=== PATIENT | female | born 1990 | race Caucasian/White ===

== ENCOUNTER 2018-10-13 02:50 | Inpatient (IN) ==
--- NOTE | 2018-10-13 03:34 | ED ---
History of Present Illness Primary Care Physician: No Primary Care Physician Chief Complaint: My water broke History of Present Illness: 27-year-old female presented to the emergency department complaining of grossly rupture of membranes. Patient states about 2 AM this morning she had a lot of leakage of fluid, the fluid is clear, patient continues to have some trickle down fluids. She feels the baby move,'s having some contractions, denies any vaginal bleeding. This is for her first baby she has had an uneventful . Normal Pap smears, denies any STDs in the past. PMH: None PSx: [place] teeth Medications: vitamins with iron Family history: Denies any family history of problems with anesthesia, denies bleeding disorders Allergies: None Para: 0 : 1 - Inpatient Certification I certify that the inpatient services were ordered in accordance with Medicare regulations governing the order. This includes certification that hospital inpatient services are reasonable and necessary and in the case of services not specified as inpatient-only under 42 CFR 419.22(n), that they are appropriately provided as inpatient services in accordance to with the 2-midnight benchmark under 43 CFR 412.3(e) PMFSH - Medical / Surgical Hx Neg / Unobtainable Medical Problems Denied: Yes - Medical History Medical History: Medical History (Last Updated 10/13/18 @ 03:53 by Odalys Young MD, R1) H/O wisdom tooth extraction - Social History I have reviewed the patient's Social History: Yes - Tobacco History Second Hand Smoke Exposure: No Tobacco Use In Past 30 Days: No - Alcohol History How Often Do You Have a Drink Containing Alcohol: Never - Substance Use History Substance History: No History of Abuse - Travel History History of Recent Travel: No Medications and Allergies Allergies Allergy/AdvReac Type Severity Reaction Status Date / Time No Known Allergies Allergy Verified 10/13/18 03:12 Home Medications Medication Instructions Recorded Confirmed Type Iron (ferrous sulfate) 1 mg PO DAILY 10/13/18 10/13/18 History PNV cmb#95-ferrous fumarate-FA 1 tab PO DAILY 10/13/18 10/13/18 History [] Exam Vital signs: Vital Signs 10/13/18 03:16 10/13/18 03:18 10/13/18 03:22 Temperature 99.0 F Pulse Rate 92 H Respiratory Rate 18 Blood Pressure 125/65 Intake & Output 10/12/18 10/12/18 10/13/18 06:59 18:59 06:59 Weight 68.492 kg Narrative: GENERAL: Well-nourished, well-developed patient. SKIN: Warm and dry. HEAD: Normocephalic and atraumatic. EYES: No scleral icterus. No injection or drainage. ENT: No nasal drainage noted. Mucous membranes pink. Airway patent. NECK: Supple, trachea midline. No JVD. CARDIOVASCULAR: Regular rate and rhythm without murmurs, gallops, or rubs. RESPIRATORY: Breath sounds equal bilaterally. No accessory muscle use. BREASTS: Bilateral exam showed no masses , no retractions, no nipple discharge. ABDOMEN/GI: Abdomen soft, non-tender, bowel sounds present, no rebound, no guarding GENITOURINARY: External Genitalia: intact and normal in appearance Cervix: Posterior to patient's left side Dilatation: 2 cm Effacement: 60% Station: -1 Presentation: Vertex Membranes: Ruptured Uterine Contractions: Present FHT's: Category: 1 Baseline: 130 Reactive: Yes Variability: Moderate EXTREMITIES: No cyanosis or edema. NEUROLOGICAL: Awake and alert. Motor and sensory grossly within normal limits. Five out of 5 muscle strength in all muscle groups. Normal speech. Assessment and Plan - Diagnosis (1) 38 weeks gestation of Code(s): Z3A.38 - 38 weeks gestation of Status: Acute (2) Rupture of membranes with clear amniotic fluid Status: Acute - Plan 27-year-old at 38/1 [facility] admitted for rupture of membranes. Uncomplicated . GBS negative. 2cm/60%/-1 Plan: Admit to labor and delivery Expectant labor management Anticipate vaginal delivery Patient seen and discussed with Dr. Ybarra Discharge Plan - Discharge Condition Condition: Good - Physicians Team Primary Care Provider: Primary Care Liu,Isabel Attending Provider: Alisia Ybarra
[2018-10-13] MEDS ORDERED: Sod Chloride 0.9% Inj 1,000 ML IV.CONT PRN (04:01)
[2018-10-13] MEDS ORDERED: fentaNYL Citrate Inj 100 MCG/2 ML Ampul IV.PUSH PRN ×2 (04:01)
[2018-10-13] MEDS ORDERED: Oxytocin 30 Units/500ml Premix 30 UNITS/500 ML BAG IV.SIG ONE (04:01)
[2018-10-13] MEDS ORDERED: Sodium Chlor 0.9% Inj 500 ML IV.SIG PRN (04:01)
[2018-10-13] MEDS ORDERED: Naloxone Inj 0.4 MG/ML Vial IV.PUSH PRN (04:01)
[2018-10-13] MEDS ORDERED: Sodium Chloride 0.9% 2 ML Flush PRN IV.FLUSH (04:07)
[2018-10-13] MEDS ORDERED: Citric Acid/Sodium Citrate Liq 30 ML UDC PO SCH (04:15)
[2018-10-13 04:43] LABS: Baso % (Auto) 0.2 % (0.0-2.0); Eos # (Auto) 0.1 th/mm3 (0.0-0.4); Eos % (Auto) 0.8 % (0.0-4.0); Hematocrit 35.4 % (35.0-46.0); Hemoglobin 12.3 gm/dL (11.6-15.3); Lymph # (Auto) 1.4 th/mm3 (1.0-4.8); Lymph % (Auto) 12.4 % (9.0-44.0); Mean Corpuscular HGB Conc 34.7 % (32.0-36.0); Mean Corpuscular Hemoglobin 30.4 pg (27.0-34.0); Mean Corpuscular Volume 87.7 fL (80.0-100.0); Mean Platelet Volume 9.5 fL (7.0-11.0); Mono # (Auto) 0.9 th/mm3 (0.0-0.9); Mono % (Auto) 7.8 % (0.0-8.0); Neut % (Auto) 78.8 % (16.0-70.0); Platelet Count 168 th/mm3 (150-450); Red Blood Count 4.03 mil/mm3 (4.00-5.30); Red Cell Distribution Width 13.6 % (11.6-17.2); White Blood Count 11.4 th/mm3 (4.0-11.0)
[2018-10-13 04:55] LABS: Bilirubin,Urine Negative (Negative); Clarity,Urine Clear (Clear); Color,Urine Yellow (Yellw/Straw); Glucose,Urine (UA) Negative (Negative); Leukocyte Esterase,Urine Negative (Negative); Mucus,Urine Few /lpf (Occasional); Nitrite,Urine Negative (Negative); Specific Gravity,Urine 1.005 (1.002-1.035); Squamous Epithelial Cell,Urine <1 /hpf (0-5)
[2018-10-13] MEDS ORDERED: Sodium Chloride 0.9% 2 ML Flush BID IV.FLUSH SCH (09:00)
[2018-10-13] MEDS ORDERED: fentaNYL 2MCG-Bupiv 0.125% Epi 150 ML EPIDURAL ONE (09:35)
[2018-10-13] MEDS ORDERED: Sodium Chlor 0.9% Inj 10 ML ONE (10:14)
[2018-10-13] MEDS ORDERED: Lidocaine PF 1% Inj 5 ML Vial ONE (10:14)
[2018-10-13] MEDS ORDERED: Lidocaaine 1.5%/Epinephrine 1:200,000 PF Inj 5 ML Amp ONE (10:15)
[2018-10-13] MEDS ORDERED: fentaNYL 2MCG-Bupiv 0.125% Epi 150 ML EPIDURAL PRN (10:59)
[2018-10-13] MEDS ORDERED: fentaNYL Citrate Inj 100 MCG/2 ML Ampul EPIDURAL ONE (10:59)
[2018-10-13] MEDS ORDERED: Oxytocin 30 Units/500ml Premix 30 UNITS/500 ML BAG ONE (16:49)
[2018-10-13] MEDS ORDERED: Zolpidem Tartrate 5 MG Tablet PO PRN (21:00)
[2018-10-13] MEDS ORDERED: Benzocaine 20% Top Spray 60 ML Can TOPICAL PRN (21:32)
[2018-10-13] MEDS ORDERED: Witch Hazel 50%/Glyderin 12.5% 40 Pad Jar RECTAL PRN (21:32)
[2018-10-13] MEDS ORDERED: Oxytocin 30 Units/500ml Premix 30 UNITS/500 ML BAG IV.CONT PRN (21:32)
[2018-10-13] MEDS ORDERED: Acetaminophen 325 MG Tablet PO PRN (21:32)
[2018-10-13] MEDS ORDERED: Bisacodyl 10 MG Supp RECTAL PRN (21:32)
--- NOTE | 2018-10-13 21:36 | P.OBDELI ---
Weeks Gestation: 38 Patient Started Active Labor: Yes Medical Induction of Labor: No Artificial Rupture of Membrane: No Anesthesia: Epidural Episiotomy: none Vaginal Delivery: Spontaneous Presentation: Vertex Nuchal Cord: None Delayed Cord Clamping (45 sec): Yes Placenta: Spontaneous delivery Laceration: 1 deg Repair: Vicryl running (3-0) Estimated blood loss (mL): 350 : Female Infant Female A Infant Delivery Date: 10/13/18 score (1 min): 8 score (5 min): 8
[2018-10-13] MEDS ORDERED: Diphtheria/Tetanus/Pertussis Vaccine Inj 0.5 ML Syringe IM ONE (22:00)
[2018-10-13] MEDS ORDERED: Measles/Mumps/Rubella Vaccine Inj 0.5 ML Vial SQ ONE (22:00)
--- NOTE | 2018-10-14 08:17 | P.PNOB ---
Subjective Post day: 1 Interval history: Patient is a 28F delivered at 38 weeks. Patient is day 1 after . Patient's pain is well controlled, currently rates it at 2/10. Bleeding is normal. Denies flatus or BM at this time. Denies headache, chest pain, nausea, vomiting, abdominal pain, calf pain. Patient has not been out of bed since this AM. Objective Vital Signs/I&O: Vital Signs 10/13/18 08:30 10/13/18 08:55 10/13/18 09:00 Temperature 97.9 F 97.5 F L Pulse Rate 92 H 97 H Respiratory Rate Blood Pressure 10/13/18 09:05 10/13/18 09:10 10/13/18 09:25 Temperature Pulse Rate 86 82 86 Respiratory Rate Blood Pressure 112/54 L 10/13/18 09:51 10/13/18 10:11 10/13/18 10:13 Temperature 98.6 F Pulse Rate 84 79 Respiratory Rate 18 Blood Pressure 117/63 100/48 L 10/13/18 10:15 10/13/18 10:18 10/13/18 10:55 Temperature Pulse Rate 84 86 88 Respiratory Rate Blood Pressure 103/54 L 98/53 L 99/50 L 10/13/18 11:10 10/13/18 11:15 10/13/18 11:25 Temperature Pulse Rate 91 H 89 95 H Respiratory Rate Blood Pressure 108/63 102/47 L 10/13/18 11:30 10/13/18 12:30 10/13/18 13:01 Temperature Pulse Rate 92 H 95 H 76 Respiratory Rate 18 Blood Pressure 98/58 L 100/48 L 102/57 L 10/13/18 13:18 10/13/18 14:10 10/13/18 15:10 Temperature 98.5 F Pulse Rate 78 90 Respiratory Rate Blood Pressure 110/58 L 114/69 10/13/18 15:45 10/13/18 16:00 10/13/18 16:40 Temperature 97.9 F Pulse Rate 83 90 Respiratory Rate 17 Blood Pressure 116/63 122/63 10/13/18 17:31 10/13/18 19:15 10/13/18 19:31 Temperature 98.7 F Pulse Rate 87 83 Respiratory Rate 18 Blood Pressure 118/49 L 119/62 10/13/18 20:01 10/13/18 20:31 10/13/18 21:00 Temperature Pulse Rate 86 90 130 H Respiratory Rate 18 Blood Pressure 120/63 112/56 L 127/96 H 10/13/18 21:32 10/13/18 21:45 10/13/18 22:00 Temperature 98.9 F Pulse Rate 87 105 H Respiratory Rate 20 18 Blood Pressure 116/58 L 113/66 10/13/18 22:12 10/13/18 22:16 10/13/18 22:30 Temperature Pulse Rate 94 H 108 H Respiratory Rate 18 Blood Pressure 115/60 111/58 L 10/13/18 23:47 Temperature 98.9 F Pulse Rate 83 Respiratory Rate 18 Blood Pressure 119/68 Intake & Output 10/13/18 10/14/18 10/14/18 18:59 06:59 18:59 Intake Total 3000 / 3000 Balance 3000 / 3000 Intake: IV 3000 / 3000 LR 1000 mL Inj 1,000 ML @ 125 3000 / 3000 mls/hr IV.CONT .Q8H [facility] Rx#: [id number] Result Diagrams: 10/13/18 03:30 Objective Remarks: GENERAL: Well-nourished, well-developed patient cooperative young female who was NAD. CARDIOVASCULAR: Regular rate and rhythm without murmurs, gallops, or rubs. RESPIRATORY: Breath sounds equal bilaterally. No wheezing or crackles. No accessory muscle use. ABDOMEN/GI: Abdomen soft, appropriately tender to palpation Fundus: Firm, non-tender at umbilicus. GENITOURINARY: Light to moderate bleeding. EXTREMITIES: No cyanosis or edema, non-tender, without signs of DVT. Medications and IVs: Active Medications Acetaminophen (Tylenol) 650 mg PO Q4H PRN PRN Reason: PAIN SCALE 1 TO 2 Al Hydroxide/Mg Hydroxide (Milk Of Magnesia Liq) 30 ml PO Q12H PRN PRN Reason: Mild Constipation Benzocaine (Americaine 20% Top Grethel) 1 spray TOPICAL Q4H PRN PRN Reason: For Perineum Discomfort Last Admin: 10/14/18 00:03 Dose: 1 spray Bisacodyl (Dulcolax Supp) 10 mg RECTAL DAILY PRN PRN Reason: SEVERE CONSITIPATION Ephedrine Sulfate (Ephedrine/Ns Syringe) 10 mg IV.PUSH UNSCH PRN PRN Reason: SEE LABEL COMMENTS Stop: 10/14/18 10:59 Lactated Ringer's (Lr 1000 Ml Inj) 1,000 mls @ 3,000 mls/hr IV.SIG UNSCH PRN PRN Reason: compromise or epidural Lactated Ringer's (Lr 1000 Ml Inj) 1,000 mls @ 125 mls/hr IV.CONT .Q8H [facility] Last Admin: 10/14/18 07:31 Dose: Not Given Fentanyl/Bupivacaine/Sodium Chlor (Fentanyl 2 Mcg-Bupiv 0.125% Epi) 150 mls @ 10 mls/hr EPIDURAL PRN PRN PRN Reason: for Labor Pain Oxytocin (Pitocin 30 Units/Ns 500 Ml Premix) 30 units in 500 mls @ 100 mls/hr IV.CONT UNSCH PRN PRN Reason: Heavy bleeding Ibuprofen (Motrin) 800 mg PO Q8H PRN PRN Reason: For Cramping Lactulose (Lactulose Liq) 30 ml PO DAILY PRN PRN Reason: SEVERE CONSITIPATION Naloxone HCl (Narcan Inj) 0.1 mg IV.PUSH Q2M PRN PRN Reason: for opiate reversal Ondansetron HCl (Zofran Inj) 4 mg IV.PUSH Q6H PRN PRN Reason: NAUSEA OR VOMITING Ondansetron HCl (Zofran Odt) 4 mg PO Q6H PRN PRN Reason: NAUSEA OR VOMITING Senna/Docusate Sodium (Kerri-Colace) 1 tab PO BID [facility] Sennosides (Senokot) 17.2 mg PO Q12H PRN PRN Reason: Moderate Constipation Sodium Chloride (Ns Flush) 2 ml IV.FLUSH BID [facility] Sodium Chloride (Ns Flush) 2 ml IV.FLUSH PRN PRN PRN Reason: FLUSH AFTER USING IV ACCESS Witch Kat/Glycerin (Tucks Pads) 1 applicatio RECTAL QID PRN PRN Reason: HEMORRHOIDS Last Admin: 10/14/18 00:03 Dose: 1 applicatio Zolpidem Tartrate (Ambien) 5 mg PO HS PRN PRN Reason: SLEEP Assessment and Plan - Plan 28F delivered at 38 weeks. day 1 after . GBS negative. -Continue routine care -Motrin as needed for pain. -Encourage OOB and early ambulation -Pelvic rest for 6 weeks. Will need follow-up appointment with OBGYN -Contraception: discussed options with patient, will make final decisions at a later time -Dispo: discharge later today or early tomorrow discussed with Dr. Brooks and Dr. Osullivan - Attending Attestation The exam, history, and the medical decision-making described in the above note were completed with the assistance of the medical student. I reviewed and agree with the findings presented. I attest that I had a [id number] encounter with the patient on the same day, and personally performed and documented my assessment and findings in the medical record.
[2018-10-14] MEDS: Senna/Docusate Sodium 8.6/50 MG Tablet PO SCH ×2 (09:18→20:28)
--- NOTE | 2018-10-15 07:22 | P.PNOB ---
Subjective Post day: 2 Interval history: Patient's pain is well-controlled. Patient reports eating and drinking without any nausea or vomiting. Patient reports minimal bleeding. Patient has passed gas and had a bowel movement. Patient is walking without lower extremity pain or shortness of breath. Patient reports desire for contraception and breast- feeding. Objective Vital Signs/I&O: Vital Signs 10/14/18 08:00 10/14/18 19:50 Temperature 98.0 F 98.7 F Pulse Rate 90 74 Respiratory Rate 18 16 Blood Pressure 102/62 113/67 Result Diagrams: 10/13/18 03:30 Objective Remarks: GENERAL: Well-nourished, well-developed patient. CARDIOVASCULAR: Regular rate and rhythm without murmurs, gallops, or rubs. RESPIRATORY: Breath sounds equal bilaterally. No accessory muscle use. ABDOMEN/GI: Abdomen soft, non-tender. Fundus: Firm, non-tender at umbilicus. GENITOURINARY: Light to moderate bleeding. EXTREMITIES: No cyanosis or edema, non-tender, without signs of DVT. Medications and IVs: Active Medications Acetaminophen (Tylenol) 650 mg PO Q4H PRN PRN Reason: PAIN SCALE 1 TO 2 Last Admin: 10/14/18 20:29 Dose: 650 mg Al Hydroxide/Mg Hydroxide (Milk Of Magnesia Liq) 30 ml PO Q12H PRN PRN Reason: Mild Constipation Benzocaine (Americaine 20% Top [place]) 1 spray TOPICAL Q4H PRN PRN Reason: For Perineum Discomfort Last Admin: 10/14/18 00:03 Dose: 1 spray Bisacodyl (Dulcolax Supp) 10 mg RECTAL DAILY PRN PRN Reason: SEVERE CONSITIPATION Lactated Ringer's (Lr 1000 Ml Inj) 1,000 mls @ 3,000 mls/hr IV.SIG UNSCH PRN PRN Reason: compromise or epidural Lactated Ringer's (Lr 1000 Ml Inj) 1,000 mls @ 125 mls/hr IV.CONT .Q8H [facility] Last Admin: 10/14/18 12:24 Dose: Not Given Fentanyl/Bupivacaine/Sodium Chlor (Fentanyl 2 Mcg-Bupiv 0.125% Epi) 150 mls @ 10 mls/hr EPIDURAL PRN PRN PRN Reason: for Labor Pain Oxytocin (Pitocin 30 Units/Ns 500 Ml Premix) 30 units in 500 mls @ 100 mls/hr IV.CONT UNSCH PRN PRN Reason: Heavy bleeding Ibuprofen (Motrin) 800 mg PO Q8H PRN PRN Reason: For Cramping Last Admin: 10/14/18 20:28 Dose: 800 mg Lactulose (Lactulose Liq) 30 ml PO DAILY PRN PRN Reason: SEVERE CONSITIPATION Naloxone HCl (Narcan Inj) 0.1 mg IV.PUSH Q2M PRN PRN Reason: for opiate reversal Ondansetron HCl (Zofran Inj) 4 mg IV.PUSH Q6H PRN PRN Reason: NAUSEA OR VOMITING Ondansetron HCl (Zofran Odt) 4 mg PO Q6H PRN PRN Reason: NAUSEA OR VOMITING Senna/Docusate Sodium (Kerri-Colace) 1 tab PO BID [facility] Last Admin: 10/14/18 20:28 Dose: 1 tab Sennosides (Senokot) 17.2 mg PO Q12H PRN PRN Reason: Moderate Constipation Sodium Chloride (Ns Flush) 2 ml IV.FLUSH BID [facility] Last Admin: 10/14/18 20:29 Dose: Not Given Sodium Chloride (Ns Flush) 2 ml IV.FLUSH PRN PRN PRN Reason: FLUSH AFTER USING IV ACCESS Witch Kat/Glycerin (Tucks Pads) 1 applicatio RECTAL QID PRN PRN Reason: HEMORRHOIDS Last Admin: 10/14/18 00:03 Dose: 1 applicatio Zolpidem Tartrate (Ambien) 5 mg PO HS PRN PRN Reason: SLEEP Assessment and Plan - Diagnosis (1) Vaginal delivery Code(s): O80 - Encounter for full-term uncomplicated delivery Status: Acute - Plan 28F delivered at 38 weeks. day 2 after . GBS negative. -Continue routine care -Motrin as needed for pain. -Encourage OOB and early ambulation -Pelvic rest for 6 weeks. Will need follow-up appointment with OBGYN -Contraception: discussed options with patient, will follow up outpatient -Dispo: discharge today discussed with Dr. Ybarra
[2018-10-15 08:28] VITALS: BP 124/69; PULSE 67; RESP 18; TEMP 98
[2018-10-15] MEDS: Senna/Docusate Sodium 8.6/50 MG Tablet PO SCH (15:46)
== END 2018-10-15 19:00 | disposition home or self-care (01) | DRG 807 ==
LOC: HOBED 02:50 → H2E 03:12 → H1EA 23:34 → H6EA 10-15 18:51
PROVIDERS: ADMIT Obstetrics & Gynecology; ATTEND Obstetrics & Gynecology
CPT/HCPCS: 81001; 85025; 86023; 86900; 86901; 90715; J2590; J3010; J7120